=== PATIENT | female | born 1985 ===

== ENCOUNTER 2017-12-29 07:46 | Emergency (ER) | payer OTHER ==
[~2017-12-29] VITALS: Ht 165.1 cm; Wt 95.0 kg
[2017-12-29 07:55] VITALS: BP 146/92
[2017-12-29] MEDS ORDERED: KETOROLAC 30 MG/1 ML IM ONE (08:30)
[2017-12-29] MEDS ORDERED: KETOROLAC 30 MG/1 ML ONE (08:33)
[2017-12-29 08:51] LABS: MICROSCOPIC NOT IND
[2017-12-29 08:55] LABS: CULTURE INDICATED? NO
[2017-12-29 08:55] LABS: BASOPHILS # (AUTO) 0.02 x10^3/uL (0-0.1); BASOPHILS % (AUTO) 0 % (0-1); EOSINOPHILS # (AUTO) 0.28 x10^3/uL (0-0.4); EOSINOPHILS % (AUTO) 3 % (1-7); LYMPHOCYTES # (AUTO) 3.19 x10^3/uL (1-3.4); LYMPHOCYTES % (AUTO) 36 % (22-44); MD NO; MEAN CORPUSCULAR HEMOGLOBIN 29.2 pg (27.0-34.8); MEAN CORPUSCULAR VOLUME 86.1 fL (80-100); MEAN PLATELET VOLUME 7.7 fL (7.4-10.4); MONOCYTES # (AUTO) 0.32 x10^3/uL (0.2-0.8); MONOCYTES % (AUTO) 4 % (2-9); NEUTROPHILS # (AUTO) 5.04 x10^3/uL (1.8-6.8); NEUTROPHILS % (AUTO) 57 % (42-75); PLATELET COUNT 303 x10^3/uL (130-400); RED BLOOD COUNT 4.94 x10^6/uL (3.82-5.3); RED CELL DISTRIBUTION WIDTH 13.6 % (9.6-15.2)
[2017-12-29 09:05] LABS: ALBUMIN 3.9 g/dL (3.4-5.0); ANION GAP 8 mmol/L (5-15); CALCIUM 8.9 mg/dL (8.5-10.1); CHLORIDE 105 mmol/L (98-107)
[2017-12-29 09:11] LABS: ALANINE AMINOTRANSFERASE 23 U/L (12-78); ALKALINE PHOSPHATASE 89 U/L (45-117); BILIRUBIN,TOTAL 0.6 mg/dL (0.2-1.0); CREATININE 0.73 mg/dL (0.55-1.02)
== END 2017-12-29 10:21 | disposition home or self-care (01) ==
LOC: ED 10:10
DX: R07.9 Chest pain, unspecified (principal); J15.9 Unspecified bacterial pneumonia
CPT/HCPCS: 36415; 71046; 80053; 81003; 83690; 84703; 85025; 93005; 96372; 99285; J1885